=== PATIENT | female | born 1990 | race Caucasian/White ===

== ENCOUNTER → 2019-01-15 13:40 | Outpatient (CLI) | payer SELFPAY ==
[2019-01-15 15:09] LABS: BASOPHILS 0.1 % (0-2); EOSINOPHILS 0.7 % (0-7); HEMATOCRIT 35.7 % (36.0-48.0); IMMATURE GRANULOCYTES 0.3 % (0-5); LYMPHOCYTES 13.2 % (15-50); MCH 29.3 pg (26.0-34.0); MCHC 33.6 g/dL (31.0-37.0); MCV 87.3 fL (80.0-100.0); MEAN PLATELET VOLUME 10.4 fL (7.4-10.4); MONOCYTES 6.6 % (2-11); NEUTROPHILS 79.1 % (40-80); PLATELET COUNT 229 10x3/uL (130-400); RBC 4.09 10x6/uL (4.00-5.40); RDW 13.7 % (11.5-14.5); WBC 9.4 10x3/uL (4.8-10.8)
[2019-01-15 15:25] LABS: APPEARANCE CLEAR (CLEAR); COLOR DK YELLOW (YELLOW); NITRITE NEGATIVE (NEGATIVE); PROTEIN NEGATIVE (NEGATIVE)
[2019-01-15 15:26] LABS: BILIRUBIN NEGATIVE (NEGATIVE); GLUCOSE NEGATIVE (NEGATIVE); KETONE MODERATE mg/dL (NEGATIVE); UROBILINOGEN NORMAL (NORMAL)
[2019-01-15 15:27] LABS: WHITE CELLS - URINE 0-5 /hpf (0-5)
[2019-01-15 15:28] LABS: BACTERIA MANY /hpf (NONE SEEN); EPITHELIAL CELLS 0-5 /hpf (0-5)
[2019-01-15 16:05] LABS: ALBUMIN 2.5 g/dL (3.4-5.0); ALKALINE PHOSPHATASE 71 U/L (46-116); ALT (SGPT) 21 U/L (10-68); BILIRUBIN - TOTAL 0.54 mg/dL (0.2-1.3); CALC OSMOLALITY 270 mosm/kg (275-300); CARBON DIOXIDE 20.2 mmol/L (21.0-32.0); CHLORIDE - SERUM 102 mmol/L (98-107); CREATININE - SERUM 0.5 mg/dL (0.6-1.3); GLUCOSE 92 mg/dL (74-106); POTASSIUM - SERUM 3.4 mmol/L (3.5-5.1); PROTEIN - SERUM 6.3 g/dL (6.4-8.2); SODIUM 137 mmol/L (136-145); UREA NITROGEN 5 mg/dL (7-18); eGFR NON AFRICAN AMERICAN > 90 mL/min (90-120)
== END | disposition home or self-care (01) ==
LOC: D.LDO 13:40
PROVIDERS: ATTEND Obstetrics & Gynecology
DX: O26.892 Other specified pregnancy related conditions, second trimester (principal); Z3A.23 23 weeks gestation of pregnancy

== ENCOUNTER → 2019-03-13 16:51 | Outpatient (CLI) | payer SELFPAY | END | disposition home or self-care (01) | LOC: D.LDO 16:51 | PROVIDERS: ATTEND Obstetrics & Gynecology | DX: O24.419 Gestational diabetes mellitus in pregnancy, unspecified control (principal); O16.3 Unspecified maternal hypertension, third trimester; Z3A.32 32 weeks gestation of pregnancy ==

== ENCOUNTER → 2019-03-22 08:46 | Outpatient (CLI) | payer BC ==
[~2019-03-22 08:46] MED LIST: GLYBURIDE5 M1 PO
[2019-03-24 13:48] LABS: PROTEIN - URINE 31.2 mg/dL (0.0-11.9)
== END | disposition home or self-care (01) ==
LOC: D.LDO 08:46
PROVIDERS: ATTEND Obstetrics & Gynecology
DX: O16.3 Unspecified maternal hypertension, third trimester (principal); Z3A.33 33 weeks gestation of pregnancy

== ENCOUNTER → 2019-03-26 16:35 | Outpatient (CLI) | payer BC ==
[~2019-03-26 16:35] MED LIST changes: +HYDROCODON-ACE1 EA10 PO; +IBUPROFEN600 MG PO
[2019-03-26 17:01] LABS: BASOPHILS 0.1 % (0-2); EOSINOPHILS 0.6 % (0-7); HEMATOCRIT 34.6 % (36.0-48.0); HEMOGLOBIN 11.5 g/dL (12-16); IMMATURE GRANULOCYTES 0.3 % (0-5); LYMPHOCYTES 17.6 % (15-50); MCH 28.4 pg (26.0-34.0); MCHC 33.2 g/dL (31.0-37.0); MCV 85.4 fL (80.0-100.0); MEAN PLATELET VOLUME 10.3 fL (7.4-10.4); MONOCYTES 7.9 % (2-11); NEUTROPHILS 73.5 % (40-80); PLATELET COUNT 214 10x3/uL (130-400); RBC 4.05 10x6/uL (4.00-5.40); RDW 13.6 % (11.5-14.5); WBC 9.3 10x3/uL (4.8-10.8)
[2019-03-26 18:03] LABS: ALBUMIN 2.5 g/dL (3.4-5.0); ALKALINE PHOSPHATASE 120 U/L (46-116); ALT (SGPT) 26 U/L (10-68); BILIRUBIN - INDIRECT 0.26 mg/dL (0.00-1.00); BILIRUBIN - TOTAL 0.36 mg/dL (0.2-1.3); CALC OSMOLALITY 269 mosm/kg (275-300); CALCIUM 9.2 mg/dL (8.5-10.1); CARBON DIOXIDE 22.3 mmol/L (21.0-32.0); CHLORIDE - SERUM 105 mmol/L (98-107); CREATININE - SERUM 0.6 mg/dL (0.6-1.3); GLUCOSE 108 mg/dL (74-106); POTASSIUM - SERUM 3.3 mmol/L (3.5-5.1); PROTEIN - SERUM 6.5 g/dL (6.4-8.2); SODIUM 135 mmol/L (136-145); UREA NITROGEN 9 mg/dL (7-18); URIC ACID 3.1 mg/dL (2.6-7.2); eGFR NON AFRICAN AMERICAN > 90 mL/min (90-120)
[2019-04-16 10:01] VITALS: BMI 32.6
== END | disposition home or self-care (01) ==
LOC: D.LDO 16:35
PROVIDERS: ATTEND Obstetrics & Gynecology
DX: O10.913 Unspecified pre-existing hypertension complicating pregnancy, third trimester (principal); Z3A.34 34 weeks gestation of pregnancy; O24.419 Gestational diabetes mellitus in pregnancy, unspecified control

== ENCOUNTER → 2019-03-29 14:53 | Outpatient (CLI) | payer BC ==
[~2019-03-29 14:53] MED LIST changes: -HYDROCODON-ACE1 EA10 PO; -IBUPROFEN600 MG PO
== END | disposition home or self-care (01) ==
LOC: D.LDO 14:53
PROVIDERS: ATTEND Obstetrics & Gynecology
DX: O24.913 Unspecified diabetes mellitus in pregnancy, third trimester (principal); O10.913 Unspecified pre-existing hypertension complicating pregnancy, third trimester; Z3A.34 34 weeks gestation of pregnancy

== ENCOUNTER → 2019-04-04 12:39 | Outpatient (CLI) | payer BC ==
[2019-04-04 13:38] LABS: BASOPHILS 0.1 % (0-2); EOSINOPHILS 0.4 % (0-7); HEMOGLOBIN 11.5 g/dL (12-16); IMMATURE GRANULOCYTES 0.2 % (0-5); LYMPHOCYTES 20.7 % (15-50); MCH 28.7 pg (26.0-34.0); MCHC 33.8 g/dL (31.0-37.0); MCV 84.8 fL (80.0-100.0); MEAN PLATELET VOLUME 10.1 fL (7.4-10.4); MONOCYTES 6.5 % (2-11); NEUTROPHILS 72.1 % (40-80); PLATELET COUNT 174 10x3/uL (130-400); RBC 4.01 10x6/uL (4.00-5.40); RDW 13.9 % (11.5-14.5); WBC 8.2 10x3/uL (4.8-10.8)
[2019-04-04 13:54] LABS: ALBUMIN 2.3 g/dL (3.4-5.0); ALKALINE PHOSPHATASE 118 U/L (46-116); ALT (SGPT) 26 U/L (10-68); BILIRUBIN - DIRECT 0.11 mg/dL (0.00-0.30); BILIRUBIN - TOTAL 0.31 mg/dL (0.2-1.3); CALC OSMOLALITY 271 mosm/kg (275-300); CALCIUM 8.7 mg/dL (8.5-10.1); CARBON DIOXIDE 21.1 mmol/L (21.0-32.0); CHLORIDE - SERUM 105 mmol/L (98-107); CREATININE - SERUM 0.5 mg/dL (0.6-1.3); POTASSIUM - SERUM 3.5 mmol/L (3.5-5.1); PROTEIN - SERUM 6.2 g/dL (6.4-8.2); SODIUM 138 mmol/L (136-145); UREA NITROGEN 7 mg/dL (7-18); URIC ACID 2.7 mg/dL (2.6-7.2); eGFR NON AFRICAN AMERICAN > 90 mL/min (90-120)
[2019-04-04 14:02] LABS: GLUCOSE 54 mg/dL (74-106)
== END | disposition home or self-care (01) ==
LOC: D.LDO 12:39
PROVIDERS: ATTEND Obstetrics & Gynecology
DX: O24.419 Gestational diabetes mellitus in pregnancy, unspecified control (principal); O14.93 Unspecified pre-eclampsia, third trimester; Z3A.35 35 weeks gestation of pregnancy

== ENCOUNTER → 2019-04-07 15:26 | Outpatient (CLI) | payer BC ==
[~2019-04-07 15:26] MED LIST changes: +HYDROCODON-ACE1 EA10 PO; +IBUPROFEN600 MG PO
[2019-04-16 10:01] VITALS: BMI 32.6
== END | disposition home or self-care (01) ==
LOC: D.LDO 15:26
PROVIDERS: ATTEND Obstetrics & Gynecology
DX: O16.3 Unspecified maternal hypertension, third trimester (principal); Z3A.36 36 weeks gestation of pregnancy

== ENCOUNTER → 2019-04-10 15:57 | Outpatient (CLI) | payer BC ==
[2019-04-10 16:23] LABS: BASOPHILS 0.1 % (0-2); EOSINOPHILS 0.5 % (0-7); HEMATOCRIT 35.2 % (36.0-48.0); HEMOGLOBIN 12.1 g/dL (12-16); IMMATURE GRANULOCYTES 0.3 % (0-5); LYMPHOCYTES 18.4 % (15-50); MCH 29.2 pg (26.0-34.0); MCHC 34.4 g/dL (31.0-37.0); MEAN PLATELET VOLUME 10.6 fL (7.4-10.4); MONOCYTES 6.8 % (2-11); NEUTROPHILS 73.9 % (40-80); RBC 4.14 10x6/uL (4.00-5.40); WBC 8.8 10x3/uL (4.8-10.8)
[2019-04-10 16:33] LABS: PLATELET COUNT 212 10x3/uL (130-400)
[2019-04-10 16:35] LABS: ALBUMIN 2.3 g/dL (3.4-5.0); ALKALINE PHOSPHATASE 131 U/L (46-116); ALT (SGPT) 21 U/L (10-68); BILIRUBIN - DIRECT 0.09 mg/dL (0.00-0.30); BILIRUBIN - INDIRECT 0.25 mg/dL (0.00-1.00); BILIRUBIN - TOTAL 0.34 mg/dL (0.2-1.3); CALC OSMOLALITY 270 mosm/kg (275-300); CALCIUM 8.3 mg/dL (8.5-10.1); CARBON DIOXIDE 20.9 mmol/L (21.0-32.0); CHLORIDE - SERUM 105 mmol/L (98-107); CREATININE - SERUM 0.6 mg/dL (0.6-1.3); GLUCOSE 75 mg/dL (74-106); POTASSIUM - SERUM 3.8 mmol/L (3.5-5.1); PROTEIN - SERUM 6.3 g/dL (6.4-8.2); SODIUM 137 mmol/L (136-145); UREA NITROGEN 8 mg/dL (7-18); URIC ACID 2.8 mg/dL (2.6-7.2); eGFR NON AFRICAN AMERICAN > 90 mL/min (90-120)
[2019-04-16 10:01] VITALS: BMI 32.6
== END | disposition home or self-care (01) ==
LOC: D.LDO 15:57
PROVIDERS: ATTEND Obstetrics & Gynecology
DX: O13.3 Gestational [pregnancy-induced] hypertension without significant proteinuria, third trimester (principal); Z3A.36 36 weeks gestation of pregnancy

== ENCOUNTER → 2019-04-13 17:05 | Outpatient (CLI) | payer BC ==
[2019-04-13 19:04] LABS: BASOPHILS 0.1 % (0-2); EOSINOPHILS 0.5 % (0-7); HEMATOCRIT 35.8 % (36.0-48.0); HEMOGLOBIN 12.3 g/dL (12-16); IMMATURE GRANULOCYTES 0.3 % (0-5); LYMPHOCYTES 22.9 % (15-50); MCHC 34.4 g/dL (31.0-37.0); MCV 84.4 fL (80.0-100.0); MEAN PLATELET VOLUME 10.4 fL (7.4-10.4); MONOCYTES 7.3 % (2-11); NEUTROPHILS 68.9 % (40-80); PLATELET COUNT 208 10x3/uL (130-400); RBC 4.24 10x6/uL (4.00-5.40); RDW 14.1 % (11.5-14.5); WBC 9.2 10x3/uL (4.8-10.8)
[2019-04-16 10:01] VITALS: BMI 32.6
== END | disposition home or self-care (01) ==
LOC: D.LDO 17:05
PROVIDERS: ATTEND Obstetrics & Gynecology
DX: O13.3 Gestational [pregnancy-induced] hypertension without significant proteinuria, third trimester (principal); Z3A.36 36 weeks gestation of pregnancy

== ENCOUNTER 2019-04-16 07:30 | Inpatient (IN) | payer BC ==
[~2019-04-16] VITALS: Ht 167.6 cm; Wt 91.6 kg
[~2019-04-16 07:30] MED LIST changes: -HYDROCODON-ACE1 EA10 PO; -IBUPROFEN600 MG PO
[2019-04-16 10:01] VITALS: BP 120/73; Ht 167.6 cm; Wt 91.6 kg
[2019-04-16 10:58] LABS: HEMOGLOBIN 11.1 g/dL (12-16); MCH 28.3 pg (26.0-34.0); MCHC 33.6 g/dL (31.0-37.0); MCV 84.2 fL (80.0-100.0); MEAN PLATELET VOLUME 10.8 fL (7.4-10.4); RBC 3.92 10x6/uL (4.00-5.40); RDW 14.2 % (11.5-14.5); WBC 7.8 10x3/uL (4.8-10.8)
--- NOTE | 2019-04-16 14:01 | NUR ---
BLOOD SUGAR IS 66. GOING TO GET MOM SOME JUICE TO DRINK. 1405 GIVING MOM APPLE JUICE. TOLERATING WELL. WILL RE CHECK BLOOD SURGAR BEFORE LEAVING PACU
[2019-04-16 14:56] VITALS: BP 112/64
--- NOTE | 2019-04-16 15:00 | NUR ---
RECEIVED TO ROOM BY BED FROM RECOVERY WITH BEDSIDE REPORT COMPLETED. PT IS AWAKE AND ALERT, RATES PAIN AT INCISION AT 3/10 AND STATES "IT JUST GRIMM." FUNDUS FIRM WITH MASSAGE AT U/1 WITH LIGHT BLEEDING NOTED. BIKINI INCISION COVERED WITH LARGE WHITE DRESSING THAT IS CLEAN AND DRY. IV TO RIGHT WRIST INFUSING PER ORDERS. RAGLAND CATH TO BEDSIDE DRAIN WITH 50ML CLEAR URINE NOTED. PT DENIES NAUSEA AT THIS TIME AND IS ASKING FOR SWEET TEA IF POSSIBLE. FAMILY AT BEDSIDE.
--- NOTE | 2019-04-16 15:20 | NUR ---
DILAUDID FURNACE CONVERTER STARTED AND PT DEMONSTRATES UNDERSTANDING OF USE. TORDAL 30MG GIVEN SIVP FOR COMPLAINT OF PAIN/BURNING AT INCISION SITE. LARGE CUP OF ICE WITH TEA/SUGAR PROVIDED REQUESTED. SIDE RAILS UP X 2 WITH CALL LIGHT IN REACH AND FAMILY AT BEDSIDE.
--- NOTE | 2019-04-16 16:00 | NUR ---
FUNDUS FIRM AT U/1 WITH LIGHT BLEEDING AND NO CLOTS NOTED. DENIES NEEDS
--- NOTE | 2019-04-16 16:45 | NUR ---
FUNDUS FIRM AT U/1, LIGHT TO MODERATE BLEEDING NOTED WITHOUT CLOTS. TOWELS CHANGED AND NEW ICE PACK PROVIDED REQUESTED. RATES PAIN/BURNING AT INCISION SITE AT 3/10. INCENTIVE SPIROMETER USE GONE OVER AND SHE IS ABLE TO SHOW USE X 2 AND COUGH X 1. RAGLAND CATH WITH 100ML CLEAR URINE NOTED. FAMILY REMAINS AT BEDSIDE.
--- NOTE | 2019-04-16 17:30 | NUR ---
PT RATES PAIN AT INCISION AT 3/10. FUNDUS FIRM AT U/1 WITH LIGHT BLEEDING AND NO CLOTS. RAGLAND CATH WITH 50ML CLEAR URINE NOTED. PT ABLE TO ROLL FROM LEFT TO RIGHT SIDE SO THAT UNDERPAD, CHUX AND TOWELS COULD BE CHANGED. NEW ICE PACK PROVIDED PER REQUEST. DENIES ANY OTHER NEEDS AT THIS TIME. SIDE RAILS UP X 2 WITH CALL LIGHT IN REACH.
--- NOTE | 2019-04-16 19:12 | NUR ---
BEDSIDE REPORT DONE AT THIS TIME WITH CLINTON MEJIA RN TO ASSUME PATIENT CARE.
[2019-04-16 19:21] VITALS: BP 106/55
--- NOTE | 2019-04-16 19:21 | NUR ---
SHIFT ASSESSMENT COMPLETED AT THIS TIME, SEE FLOWSHEET.
[2019-04-16 19:52] LABS: BASOPHILS 0.2 % (0-2); EOSINOPHILS 0.5 % (0-7); HEMATOCRIT 32.6 % (36.0-48.0); HEMOGLOBIN 10.9 g/dL (12-16); IMMATURE GRANULOCYTES 0.3 % (0-5); LYMPHOCYTES 15.8 % (15-50); MCH 28.2 pg (26.0-34.0); MCHC 33.4 g/dL (31.0-37.0); MCV 84.5 fL (80.0-100.0); MEAN PLATELET VOLUME 10.2 fL (7.4-10.4); MONOCYTES 5.5 % (2-11); NEUTROPHILS 77.7 % (40-80); PLATELET COUNT 173 10x3/uL (130-400); RBC 3.86 10x6/uL (4.00-5.40); RDW 13.9 % (11.5-14.5)
[2019-04-16 20:03] LABS: WBC 10.3 10x3/uL (4.8-10.8)
--- NOTE | 2019-04-16 21:07 | NUR ---
PT RESTING QUIETLY WITH EYES OPEN, NO DISTRESS NOTED. WILL CONTINUE TO MONITOR.
--- NOTE | 2019-04-16 22:02 | NUR ---
DR QUARLES NOTIFIED OF PATIENT LAB RESULTS. NO NEW ORDERS.
--- NOTE | 2019-04-16 22:16 | NUR ---
PATIENT COMPLAINING OF 4/10 CRAMPING PAIN, TORADOL 30MG SLOW IVP ADMINISTERED AT THIS TIME PER MD ORDERS.
--- NOTE | 2019-04-16 23:43 | NUR ---
PATIENT RESTING QUIETLY WITH EYES OPEN, NO DISTRESS NOTED, NEW BAG OF NS WITH PITOCIN HUNG AT THIS TIME AT 125ML/HR
--- NOTE | 2019-04-17 01:30 | NUR ---
PT HOLDING INFANT AT THIS TIME, PERICARE PERFORMED, CLEAN PAD PLACED, FRESH ICE PACK PLACED TO ABDOMEN. RAGLAND CATHETER EMPTIED OF 650ML CLEAR YELLOW URINE. NO FURTHER NEEDS IDENTIFIED. WILL CONTINUE TO MONITOR.
--- NOTE | 2019-04-17 03:45 | NUR ---
PT SITTING UP IN BED HOLDING . NO NEEDS IDENTIFIED. WILL CONTINUE TO MONITOR
[2019-04-17 05:30] VITALS: BP 114/62
--- NOTE | 2019-04-17 05:30 | NUR ---
PT HOLDING , INFANT TO GETACHEW HAWTHORNE, RN ARMS AT THIS TIME, VS OBTAINED, I&O'S COLLECTED, SHANIQUA CARE DONE WITH WET WARM WASH CLOTHS, BLUE CHUX AND SHANIQUA PAD CHANGED, MOD BLEEDING NOTED WITH 1 1/2 DOLLAR SIZE CLOT, FF, ML, U/1, ICE PACK TO ABD, PT INST ON AND DEMONSTRATED I.S. WITH GOOD EFFORT, INFANT BACK TO PT'S ARMS FOR , PT DENIES FURTHER NEEDS, FOB ASLEEP ON COUCH
--- NOTE | 2019-04-17 07:15 | NUR ---
AM ASSESSMENT CHARTED ON FLOWSHEET. FUNDUS FIRM AT U/U WITH LIGHT BLEEDING NOTED TO SHANIQUA PAD. BIKINI INCISION REMAINS COVERED WITH BANDAGE AT THIS TIME, QUESTIONS ASKED ABOUT WHEN THAT COULD BE REMOVED AND SHE UNDERSTANDS THAT DR QUARLES WOULD ROUND THIS AM AND REMOVE IT HIMSELF. IV TO RIGHT WRIST INFUSING PER ORDERS AND DILAUDID PREVOCATIONAL/REHABILITATION COUNSELOR CONTROLLING PAIN, RATES PAIN AT 0/[address] AT [address] TIME[address]CD IN PL[address] BILAT. INFANT TO BREAST AT THIS TIME. SPOUSE AT BEDSIDE WITH SIDE RAILS UP X 2 AND CALL LIGHT IN REACH.
[2019-04-17 07:18] LABS: RAPID PLASMA REAGIN Non Reactive (Non Reactive)
[2019-04-17 07:26] LABS: BASOPHILS 0.1 % (0-2); HEMATOCRIT 32.7 % (36.0-48.0); HEMOGLOBIN 10.8 g/dL (12-16); IMMATURE GRANULOCYTES 0.4 % (0-5); LYMPHOCYTES 17.3 % (15-50); MCH 28.1 pg (26.0-34.0); MCV 85.2 fL (80.0-100.0); MEAN PLATELET VOLUME 10.7 fL (7.4-10.4); MONOCYTES 7.9 % (2-11); NEUTROPHILS 73.3 % (40-80); PLATELET COUNT 162 10x3/uL (130-400); RBC 3.84 10x6/uL (4.00-5.40); RDW 14.2 % (11.5-14.5); WBC 8.4 10x3/uL (4.8-10.8)
--- NOTE | 2019-04-17 08:51 | NUR ---
ROUNDS MADE BY DR QUARLES
--- NOTE | 2019-04-17 10:09 | NUR ---
PT DENIES NEEDS AT THIS TIME. PT STATES THAT DR QUARLES HAD COME IN WITH PLAN OF CARE GONE OVER. PT WILL CALL WHEN VISITORS LEAVE, INFANT IN CRIB AT BEDSIDE, SIDE RAILS UP X 2.
--- NOTE | 2019-04-17 12:30 | NUR ---
SILO PAINTER DISCONTINUED, IV SALINE LOCKED AND RAGLAND CATH REMOVED INTACT WITH TOTAL OF 600ML CLEAR URINE. PT IS ABLE TO MOVE HERSELF TO SITTING UP ON SIDE OF BED, SHE DOES COMPLAIN OF DIZZINESS, ALLOWED TO REMAINING SITTING FOR SEVERAL MINUTES AFTER WHICH PT DENIES ANY DIZZINESS OR NAUSEA. ABLE TO AMBULATE TO BATHROOM AND VOID 200ML. SHANIQUA CARE PER SELF, GOWN CHANGED AND MESH BRIEFS WITH SHANIQUA PADS ON. BACK TO BED WITHOUT ASSISTANCE AND POSITIONED SELF FOR COMFORT.
--- NOTE | 2019-04-17 14:00 | NUR ---
PAIN MED GIVEN SCANNED TO EMAR. PT RATES PAIN AT 5/10. LARGE CUP OF ICE ALSO PROVIDED REQUESTED. SIDE RAILS UP X 2 WITH CALL LIGHT IN REACH. TAKEN TO NBN VIA CRIB SO THAT PT MIGHT TAKE A NAP
--- NOTE | 2019-04-17 17:10 | NUR ---
PT SITTING UP IN BED WITH TO BREAST. RATES PAIN AT 3/10 AND DENIES NEEDS AT THIS TIME. SIDE RAILS UP X 2 WITH CALL LIGHT IN REACH AND SPOUSE AT BEDSIDE.
--- NOTE | 2019-04-17 17:45 | NUR ---
PT CALLS OUT TO INFORM THAT SHE HAS GOTTEN UP TO VOID. THIS RN TO ROOM WITH 500ML NOTED TO COLLECTION HAT. PT DENIES NEEDS AT THIS TIME. SIDE RAILS UP X 2 WITH CALL LIGHT IN REACH
--- NOTE | 2019-04-17 18:30 | NUR ---
PT CALLS OUT FOR NURSE. THIS RN TO BEDSIDE, PT ASKING IF OK TO SHOWER. TOWELS PLACED IN BATHROOM AND EXPLAINED WHERE EMERGENCY CALL LIGHT IS LOCATED.
--- NOTE | 2019-04-17 18:58 | NUR ---
CALLS OUT WITH REQUEST FOR PAIN MEDICATION. THIS RN TO ROOM WITH Mary HAWTHORNE RN
--- NOTE | 2019-04-17 19:01 | NUR ---
BEDSIDE REPORT COMPLETED AT THIS TIME WITH CARINA BARRON TO ASSUME PATIENT CARE.
--- NOTE | 2019-04-17 19:04 | NUR ---
NORCO ADMINISTERED PER MD ORDERS SEE EMAR
[2019-04-17 19:56] VITALS: BP 118/60
--- NOTE | 2019-04-17 19:56 | NUR ---
SHIFT ASSESSMENT COMPLETED, SEE FLOWSHEET
--- NOTE | 2019-04-17 20:50 | NUR ---
PT SITTING UP IN BED HOLDING INFANT, NO DISTRESS NOTED, PATIENT STATES THAT SHE WANTS TO TAKE A SHOWER AFTER SHE FEEDS THE BABY. IV DISCONTINUED AT THIS TIME WITH GAUZE AND PRESSURE APPLIED, PT TOLERATED WELL. TOWELS, RAGS AND CLEAN GOWN PROVIDED AND SHOWER CHAIR IN SHOWER WITH A TOWEL ON TOP OF THE CHAIR FOR COMFORT. PT ENCOURAGED TO CALL WITH ANY NEEDS, SIGNIFICANT OTHER REMAINS AT BEDSIDE FOR ASSISTANCE
--- NOTE | 2019-04-17 22:20 | NUR ---
PT SITTING UP IN BED HOLDING , DENIES PAIN OR NEEDS AT THIS TIME. WILL CONTINUE TO MONITOR
--- NOTE | 2019-04-17 23:30 | NUR ---
PATIENT UP TO SHOWER, SIGNIFICANT OTHER REMAINS AT HER SIDE FOR ASSISTANCE. NO NEEDS IDENTIFIED.
[2019-04-18 00:06] VITALS: BP 113/58
--- NOTE | 2019-04-18 00:06 | NUR ---
PT SITTING IN BED HOLDING , DENIES PAIN OR NEEDS AT THIS TIME. PT ENCOURAGED TO CALL WITH ANY NEEDS. SIGNIFICANT OTHER REMAINS AT BEDSIDE FOR SUPPORT. BED REMAINS LOW IN LOCKED POSITION, SIDE RAILS UPX2, CALL GAMBOA AND TRAY TABLE IN REACH, WILL CONTINUE TO MONITOR
--- NOTE | 2019-04-18 01:08 | NUR ---
NORCO ADMINISTERED PER MD ORDERS AND PT REQUEST, SEE EMAR
--- NOTE | 2019-04-18 03:54 | NUR ---
PT LYING IN BED HOLDING INFANT, DENIES PAIN OR NEEDS AT THIS TIME. WILL CONTINUE TO MONITOR.
--- NOTE | 2019-04-18 05:57 | NUR ---
PT SLEEPING, SIGNIFICANT OTHER LAYING ON THE COUCH HOLDING . NO DISTRESS NOTED WILL CONTINUE TO MONITOR.
--- NOTE | 2019-04-18 07:30 | NUR ---
to pt's room for am assessment. pt is currently . will return for assessment. pt and sig other denies needs at this time. srup x2, call light and phone within reach.
--- NOTE | 2019-04-18 08:00 | NUR ---
dr. fonseca to room, pt is in the bathroom, pt states md states he will return for rounding.
--- NOTE | 2019-04-18 08:20 | NUR ---
am assessment completed. see flowsheet.
[2019-04-18 08:28] VITALS: BP 117/65
--- NOTE | 2019-04-18 11:45 | NUR ---
dietary serves lunch tray, pt denies needs at this time. sr up x2, call light and phone within reach.
[2019-04-18] MEDS ORDERED: HYDROCODON-ACE1 EA10 PO (12:40)
[2019-04-18] MEDS ORDERED: IBUPROFEN600 MG PO (12:41)
--- NOTE | 2019-04-18 13:00 | NUR ---
discharge instructions explained to pt, pt denies questions. copies provided. prescriptions given to pt. pt awaiting d/c of .
--- NOTE | 2019-04-18 13:30 | NUR ---
pt off unit by wheelchair, with in carseat with volunteer, to private vehicle.
== END 2019-04-18 13:00 | disposition home or self-care (01) | DRG 785 ==
LOC: D.MS 07:30 → D.LD 09:16 → D.MS 12:00 → D.LD 04-18 13:00
PROVIDERS: ADMIT Obstetrics & Gynecology; ATTEND Obstetrics & Gynecology
PROC: 0UB70ZZ Excision of Bilateral Fallopian Tubes, Open Approach (ICD-10-PCS; 2019-04-16)
PROC: 10D00Z1 Extraction of Products of Conception, Low, Open Approach (ICD-10-PCS; principal; 2019-04-16 12:00)
DX: O34.211 Maternal care for low transverse scar from previous cesarean delivery (principal); Z37.0 Single live birth; O24.429 Gestational diabetes mellitus in childbirth, unspecified control; O14.04 Mild to moderate pre-eclampsia, complicating childbirth